=== PATIENT | female | born 1975 | race Caucasian/White ===

== ENCOUNTER 2022-01-05 09:15 | Outpatient (REF) | payer BC, SELFPAY ==
--- NOTE | ~2022-01-05 | XR_ITS ---
EXAMINATION: XR ANKLE, LEFT CLINICAL INFORMATION: Unspecified injury of the left ankle COMPARISON: None TECHNIQUE: AP, lateral, and mortise views of the left ankle. FINDINGS: Mild cortical irregularity involving the lateral malleolus at its lateral and medial cortex with horizontal oriented lucency may represent a nondisplaced fracture. Correlation with physical exam. Prominent soft tissue swelling overlying the lateral malleolus. Ankle mortise is symmetric. Joint spaces and alignment are otherwise maintained. XR/XR ankle LT min 3V IMPRESSION: 1. Mild cortical irregularity involving the lateral malleolus at its lateral and medial cortex with horizontal oriented lucency may represent a nondisplaced fracture. Correlation with physical exam. 2. Prominent soft tissue swelling overlying the lateral malleolus.
== END 2022-01-05 09:16 | disposition home or self-care (01) ==
LOC: HO.HMGCX 09:15
PROVIDERS: Visit Provider Internal Medicine
DX: S99.912A Unspecified injury of left ankle, initial encounter (principal)
CPT/HCPCS: 73610

== ENCOUNTER 2023-01-12 10:23 | Outpatient (AMB) | payer BC, SELFPAY ==
--- NOTE | 2023-01-12 11:05 | MHC.OFFWIV ---
Intake Vital Signs 01/12/23 11:13 Height 5 ft 7 in Weight 158 lb 4 oz BMI 24.8 BP 112/74 Blood Pressure Location Lt brachial Position Sitting Pulse 74 Pulse Source Pulse Oximeter Temp 97.0 F Temp Source Temporal Artery Scan Pulse Oximetry (%) 98 Oxygen Delivery Method Room Air Intake Visit Reasons: EST/sinus infection/ear inf/[phone] Intake Note: Pt is here c/o sinus pressure and possible ear infection. Patient Tobacco Use Status: Never used Tobacco Allergies No Known Allergies Allergy (Verified 01/12/23 11:06) Do you need a note to return to daycare/school/sports/work: No HPI HPI Comments History of Present Illness Details This is a 47-year-old female with past medical history significant for chronic sinusitis who presents to the office today for sick visit. Patient complaining of progressively worsening sinus pain/pressure, nasal congestion/rhinorrhea, postnasal drip, sore throat, and bilateral otalgia x4 days. She denies any fevers or chills. She denies any known sick contacts. She denies any chest pain or shortness of breath. She denies any abdominal pain or nausea/vomiting/diarrhea. [facility] Social History Patient Tobacco Use Status: Never used Tobacco Review of Systems Const All systems reviewed & are unremarkable except as noted in HPI and below Reports no additional complaints Eyes Reports no additional complaints ENT Reports no additional complaints, Reports as per HPI, Reports nasal discharge, Reports post nasal drip, Reports sinus pressure and Reports sore throat Card Reports no additional complaints Resp Reports no additional complaints GI Reports no additional complaints Reports no additional complaints Musc Reports no additional complaints Skin/Breast Reports system reviewed and no additional complaints, except as documented Neuro Reports no additional complaints Psych Reports no additional complaints Endo Reports no additional complaints Domo/Lymph Reports no additional complaints Aller/Immun Reports no additional complaints Physical Exam Vital Signs: Last Vital Signs Temp 97.0 F 01/12/23 11:13 Pulse 74 01/12/23 11:13 BP 112/74 01/12/23 11:13 Pulse Ox 98 01/12/23 11:13 Oxygen Delivery Method Room Air 01/12/23 11:13 BMI result Body Mass Index 24.8 Const General: cooperative, healthy appearing, no acute distress and well developed Orientation/consciousness: patient oriented x3 HEENT Head: Yes normal to inspection Ears: hearing grossly normal bilaterally and Abnormal EAC present (Mild erythema bilaterally.) General nose exam: Normal external nose present Face and sinus: Yes sinus tenderness (frontal and bilateral maxillary (left > right)) Mouth: Normal oral and palatal mucosa present Throat: Yes posterior oropharynx normal, Yes tonsils normal, Yes uvula midline and No peritonsillar mass Eyes General: appearance normal, both eyes and all related structures Pupils: Equal, round and reactive pupils present EOM: EOMs intact bilaterally Resp Effort & Inspection: normal respiratory effort and no respiratory distress Auscultation: clear to auscultation bilaterally Cardio Rate: regular rate Rhythm: regular rhythm Heart sounds: no gallops, no murmurs and no rubs Peripheral pulses: Peripheral pulses 2+ throughout GI Inspection: No distended Palpation (GI): Soft to palpation and nontender Auscultation: normal bowel sounds Skin General skin exam: no rashes or lesions noted Neuro General: patient oriented x3 Cranial nerves: Yes CN's II-XII intact bilaterally and Yes Equal, round and reactive pupils present Gait exam (Neuro): Normal gait present Motor exam (neuro): 5/5 motor strength present throughout Extrem General: Yes normal to inspection, Yes full ROM and Yes no clubbing, cyanosis or edema Psych Appearance: grossly normal Mental Status: mental status grossly normal Assessment & Plan Assessment & Plan (1) Acute bacterial rhinosinusitis: Code(s): J01.90 - Acute sinusitis, unspecified; B96.89 - Other specified bacterial agents as the cause of diseases classified elsewhere Plan: This is a 47-year-old female with past medical history significant for chronic sinusitis who presents with progressively worsening sinus pain/pressure, nasal congestion/rhinorrhea, postnasal drip, and bilateral otalgia. History and physical most consistent with acute bacterial rhinosinusitis. Patient sent home on amoxicillin clavulanate 875-125 mg twice daily x5 days. Recommended symptomatic management including rest, increased fluids, advil/tylenol for pain/fever, and over the counter throat lozenges/decongestants. Patient advised to follow up here or go to the emergency room for worsening/persistent symptoms. She verbalizes her understanding she is in agreement with the plan. Medications: New amoxicillin-pot clavulanate 875-125 mg 1 tab PO BID 10 tabs 0RF Coding Level of Care Code Est Pt Level 3 (64814) Diagnoses Acute bacterial rhinosinusitis J01.90; B96.89
[2023-01-12 11:13] VITALS: BP 112/74; PULSE 74; TEMP 36.1; O2SAT 98; BMI 24.8
== END 2023-01-12 12:13 | disposition home or self-care (01) ==
PROVIDERS: Visit Provider Physician Assistant Medical
DX: J01.90 Acute sinusitis, unspecified (principal); B96.89 Other specified bacterial agents as the cause of diseases classified elsewhere
CPT/HCPCS: 99213

== ENCOUNTER 2023-03-14 08:33 | Outpatient (AMB) | payer BC, SELFPAY ==
[2023-03-14 09:08] VITALS: BP 122/70; PULSE 86; TEMP 35.9; O2SAT 100; BMI 24.9
--- NOTE | 2023-03-14 09:08 | AM.OFFWIN_ITS ---
Intake Vital Signs 03/14/23 09:08 Height 5 ft 7 in Weight 159 lb BMI 24.9 BP 122/70 Blood Pressure Location Rt brachial Position Sitting Pulse 86 Pulse Source Pulse Oximeter Temp 96.7 F L Temp Source Temporal Artery Scan Pulse Oximetry (%) 100 Oxygen Delivery Method Room Air Intake Visit Reasons: Ep, sinus congestion, sore throat [phone] Intake Note: pt is here for c/o sinus congestion, ear pain, sore throat Patient Tobacco Use Status: Never used Tobacco Allergies sulfamethoxazole [From Bactrim] Allergy (Mild, Verified 03/14/23 09:10) Hallucinations trimethoprim [From Bactrim] Allergy (Mild, Verified 03/14/23 09:10) Hallucinations Do you need a note to return to daycare/school/sports/work: Yes HPI Ep, sinus congestion, sore throat [phone] HPI Details 47[facility]. She reports sinus pressure, left ear pain, sore throat for the last several days. Reports chronic sinusitis, and has referral to ENT, however appointment is not until May. Denies fever or chills. Reports nieces had strep last week. [facility] Social History Patient Tobacco Use Status: Never used Tobacco Review of Systems Const All systems reviewed & are unremarkable except as noted in HPI and below Physical Exam Vital Signs: Last Vital Signs Temp 96.7 F L 03/14/23 09:08 Pulse 86 03/14/23 09:08 BP 122/70 03/14/23 09:08 Pulse Ox 100 03/14/23 09:08 Oxygen Delivery Method Room Air 03/14/23 09:08 BMI result Body Mass Index 24.9 Const General: cooperative and ill appearing acutely HEENT Head: Yes normal to inspection Ears: hearing grossly normal bilaterally, external ears normal and TM's normal bilaterally General nose exam: Normal external nose present Face and sinus: Yes sinus tenderness (Frontal and maxillary) Mouth: Normal oral and palatal mucosa present Throat: Yes posterior oropharynx abnormal (Tonsillar erythema and exudate) Neck Neck: Yes lymphadenopathy (Submandibular) Resp Effort & Inspection: normal respiratory effort and able to speak in complete sentences Auscultation: clear to auscultation bilaterally Cardio Jugular venous distension: no JVD Palpation: normal PMI Rate: regular rate Rhythm: regular rhythm Skin General skin exam: no rashes or lesions noted Extrem General: Yes capillary refill normal and Yes no clubbing, cyanosis or edema Psych Appearance: grossly normal Mental Status: mental status grossly normal Speech and movement: Normal speech and movement present Assessment & Plan Assessment & Plan (1) Strep pharyngitis: Code(s): J02.0 - Streptococcal pharyngitis Plan: Penicillin x10 days for strep pharyngitis. Reviewed indications, use, possible side effects of medication. Advised hydration, lozenges, warm salt water gargles for any discomfort. Advised to return to the clinic if she does not improve with treatment. She verbalizes understanding and agrees to plan. Medications: New penicillin V potassium 500 mg PO TID 30 tabs 0RF 10 days J02.0 - Streptococcal pharyngitis Coding Level of Care Code Est Pt Level 3 (44090) Diagnoses Strep pharyngitis J02.0
== END 2023-03-14 09:47 | disposition home or self-care (01) ==
PROVIDERS: Visit Provider Nurse Practitioner Family
DX: J02.0 Streptococcal pharyngitis (principal); Z13.9 Encounter for screening, unspecified
CPT/HCPCS: 87880; 99213

== ENCOUNTER 2023-10-09 15:29 | Outpatient (AMB) | payer BC, SELFPAY ==
[2023-10-09 15:29] VITALS: BP 118/66; PULSE 70; TEMP 36.6; O2SAT 98
--- NOTE | 2023-10-09 15:29 | AM.OFFWIN_ITS ---
Intake Vital Signs 10/09/23 15:29 Height 5 ft 7 in BP 118/66 Blood Pressure Location Rt brachial Position Sitting Pulse 70 Pulse Source Pulse Oximeter Temp 97.9 F Temp Source Temporal Artery Scan Pulse Oximetry (%) 98 Intake Visit Reasons: EP Left eye pain Intake Note: pt is here for left eye pain Patient Tobacco Use Status: Never used Tobacco Allergies sulfamethoxazole [From Bactrim] Allergy (Mild, Verified 12/31/23 10:49) Hallucinations trimethoprim [From Bactrim] Allergy (Mild, Verified 12/31/23 10:49) Hallucinations Medication List - Last Reconciled 10/09/23 by DINORAH Florence olopatadine 0.2% 1 drp ophthalmic (eye) DAILY PRN Do you need a note to return to daycare/school/sports/work: No HPI HPI Comments History of Present Illness Details Patient is a 48-year-old female in today for sick visit. She states that 3 days prior to this appointment she was outside gardening and noticed that her eyes started to itch. Over the past 3 days she feels some discomfort in the outside corner of her eye. Denies any drainage, denies any mucus, denies feeling any foreign body into the eye. Patient also denies any vision change. Patient has not tried to wash her eyes or is not utilized any sort of compress. Patient has not utilized eyedrops In office exam with fluroscein did not reveal any cuts or lacerations. No foreign bodies present. Patient size side is maintained. Sclera white, conjunctiva pink. No discharge. [facility] Social History Patient Tobacco Use Status: Never used Tobacco Review of Systems Const All systems reviewed & are unremarkable except as noted in HPI and below Denies chills and Denies fever(s) Physical Exam Vital Signs: Last Vital Signs Temp 97.9 F 10/09/23 15:29 Pulse 70 10/09/23 15:29 BP 118/66 10/09/23 15:29 Pulse Ox 98 10/09/23 15:29 Const Other: Appearance: Alert.? Oriented X3.? No acute distress.? Head: Normocephalic, atraumatic, no step-offs or deformities Eyes: Pupils equal, round and reactive to light.?EOMI. Sclera white, conjunctiva pink. No discharge. No change in vision. No lacerations or foreign bodies. Respiratory: No respiratory distress.? Neuro: Oriented X 3.? No motor deficit.? No sensory deficit. Assessment & Plan Assessment & Plan (1) Allergic conjunctivitis, left eye: Comment: Patient will be given olopatadine to be taken as prescribed. Patient can also utilize warm compress. Patient has been educated on signs of worsening symptoms when to report back to the walk-in or when to present to the ED Code(s): H10.12 - Acute atopic conjunctivitis, left eye Plan: Take your medications as prescribed. If you were prescribed antibiotics today, it is important that you take your medication to their entirety, do not skip any doses, do not finish them early. Follow-up with your primary care provider this week. Return to the emergency department with new or worsening symptoms. Such as fevers, chills, chest pain, shortness of breath, nausea, vomiting, dizziness, headache, vision changes, lethargy In case of emergency call 911 Plan follow up with PCP. Medications: New olopatadine 0.2% 1 drp ophthalmic (eye) DAILY PRN 2.5 mL 0RF itching Coding Level of Care Code Est Pt Level 3 (91020) Diagnoses Allergic conjunctivitis, left eye H10.12 Time Spent (min) 24
== END 2023-10-09 16:02 | disposition home or self-care (01) ==
PROVIDERS: Visit Provider Nurse Practitioner Primary Care
DX: H10.12 Acute atopic conjunctivitis, left eye (principal)
CPT/HCPCS: 99499

== ENCOUNTER 2023-12-31 10:09 | Outpatient (AMB) | payer BC, SELFPAY ==
--- NOTE | 2023-12-31 10:48 | AM.OFFWIN_ITS ---
Intake Vital Signs 12/31/23 10:49 12/31/23 11:43 Height 5 ft 7 in Weight 161 lb BMI 25.2 BP 138/96 H 120/70 Blood Pressure Location Lt brachial Position Sitting Pulse 95 Pulse Source Pulse Oximeter Temp 97.9 F Temp Source Oral Pulse Oximetry (%) 98 Oxygen Delivery Method Room Air Intake Visit Reasons: possible sinus infect ears clogged [phone] Intake Note: pt c/o ears clogged, sinus pressure, started Sunday Patient Tobacco Use Status: Never used Tobacco Allergies sulfamethoxazole [From Bactrim] Allergy (Mild, Verified 12/31/23 10:49) Hallucinations trimethoprim [From Bactrim] Allergy (Mild, Verified 12/31/23 10:49) Hallucinations Do you need a note to return to daycare/school/sports/work: No HPI possible sinus infect ears clogged [phone] HPI Details This note is constructed using voice recognition software. While every effort has been made to ensure accuracy, retail reset merchandiser errors may have been included. The patient is a 48 year old female who presents to the clinic today with personal concern for sinus infection, with symptom onset 3 days ago. She has a longstanding history sinusitis, typically following allergy response. She follows an biofuels research scientist who had ordered a nasal spray which di d not seem to help her. She does use Neti pot for sinus rinse, however does feel that this typically does not completely resolve her symptoms. She denies fever, chills, cough, shortness of breath, body aches. She has mild pain in her left over right ear and mild pressure in her left maxillary sinus region. She is not getting out any colors when she is doing her irrigation. [facility] Social History Patient Tobacco Use Status: Never used Tobacco Review of Systems Const All systems reviewed & are unremarkable except as noted in HPI and below Physical Exam Vital Signs: Last Vital Signs Temp 97.9 F 12/31/23 10:49 Pulse 95 12/31/23 10:49 BP 138/96 H 12/31/23 10:49 Pulse Ox 98 12/31/23 10:49 Oxygen Delivery Method Room Air 12/31/23 10:49 BMI result Body Mass Index 25.2 Const General: cooperative, healthy appearing, comfortable, no acute distress and alert Orientation/consciousness: patient oriented x3 Limitations: no limitations HEENT Head: Yes normal to inspection and Yes normocephalic Ears: hearing grossly normal bilaterally General nose exam: Normal external nose present Face and sinus: Yes normal facial exam and Yes sinus tenderness (Bilateral maxillary) Mouth: Normal oral and palatal mucosa present and tongue normal Teeth and gingiva: dentition normal Throat: Yes posterior oropharynx normal Eyes General: appearance normal, both eyes and all related structures Neck Neck: Yes normal visual inspection, Yes full ROM and Yes no lymphadenopathy Resp Effort & Inspection: normal respiratory effort and able to speak in complete sentences Auscultation: clear to auscultation bilaterally Cardio Jugular venous distension: no JVD Palpation: normal PMI Rate: regular rate Heart sounds: S1 normal heart sound present, S2 normal heart sound present, no click, no gallops, no murmurs and no rubs Skin General skin exam: no rashes or lesions noted, elasticity normal and turgor normal Neuro General: patient oriented x3 Psych Appearance: grossly normal Mental Status: mental status grossly normal Speech and movement: Normal speech and movement present Affect: normal affect Assessment & Plan Assessment & Plan (1) Sinusitis: Code(s): J32.9 - Chronic sinusitis, unspecified Qualifiers: Chronicity: acute Recurrence: non-recurrent Sinusitis location: maxillary Qualified Code(s): J01.00 - Acute maxillary sinusitis, unspecified Plan: Does not appear to be infectious at this time. Advised patient to use sinus irrigation, and ongoing follow up with primary care and ENT. Steroid burst ordered for symptomatic relief. Advised follow up with worsening, failure to improve or development of fevers. Plan See above for full details and plan. Medications: New prednisone 40 mg (2 x 20 mg) PO DAILY 6 tabs 0RF 3 days Coding Level of Care Code Est Pt Level 3 (02168) Diagnoses Acute non-recurrent maxillary sinusitis J01.00 Chronicity: acute Recurrence: non-recurrent Sinusitis location: maxillary
[2023-12-31 10:49] VITALS: BP 138/96; PULSE 95; TEMP 36.6; O2SAT 98; BMI 25.2
[2023-12-31 11:43] VITALS: BP 120/70
== END 2023-12-31 11:39 | disposition home or self-care (01) ==
PROVIDERS: Visit Provider Registered Nurse
DX: J01.00 Acute maxillary sinusitis, unspecified (principal)
CPT/HCPCS: 99213